=== PATIENT | female | born 1960 | race Caucasian/White ===

== ENCOUNTER 2017-12-01 18:46 | Inpatient (IN) | payer OTHER ==
[~2017-12-01] VITALS: Ht 157.5 cm; Wt 178.3 kg
[2017-12-01] MEDS ORDERED: ATOR10TA84 PO (19:03)
[2017-12-01] MEDS ORDERED: ASPI-1182 PO (19:03)
[2017-12-01] MEDS ORDERED: INSLAN SQ ×2 (19:03)
[2017-12-01] MEDS ORDERED: LOSA25TA21 PO (19:03)
[2017-12-01] MEDS ORDERED: METF500T4 PO (19:03)
[2017-12-01] MEDS ORDERED: FURO40 PO (19:03)
[2017-12-01] MEDS ORDERED: LEVO75 PO (19:03)
[2017-12-01] MEDS ORDERED: 0.9% SODIUM CHLORIDE 5 ML NEB SOLUTION NEB ONE (19:06)
[2017-12-01 19:07] LABS: GLUCOSE,POINT OF CARE 193 MG/DL (70-110)
[2017-12-01] MEDS ORDERED: ALBUTEROL SULFATE 5 MG/ML 20 ML NEB SOLN [BULK] NEB ONE (19:15)
[2017-12-01] MEDS ORDERED: IPRATROPIUM BROMIDE 0.5 MG/2.5 ML NEB SOLUTION NEB ONE (19:15)
[2017-12-01 20:30] LABS: BASOPHILS % (AUTO) 0.6 % (0.0-2.0); EOSINOPHILS % (AUTO) 1.1 % (1.0-6.0); HEMATOCRIT 38.6 % (36-46); HEMOGLOBIN 13.1 g/dL (12.0-16.0); LYMPHOCYTES # (AUTO) 1.4 K/uL (1.0-4.8); LYMPHOCYTES % (AUTO) 19.9 % (22.0-44.0); MEAN CORPUSCULAR HEMOGLOBIN 29.2 pg (26.0-34.0); MEAN CORPUSCULAR VOLUME 86 fL (80-100); MONOCYTES # (AUTO) 0.4 K/uL (0.1-1.0); MONOCYTES % (AUTO) 5.5 % (2.0-9.0); NEUTROPHILS % (AUTO) 72.9 % (40.0-70.0); PLATELET COUNT (AUTO) 248 K/uL (150-450); RED CELL DISTRIBUTION WIDTH 14.1 % (11.5-14.5)
[2017-12-01 20:41] LABS: ANION GAP 6 mmol/L (8-16); CALCIUM, TOTAL 9.5 mg/dL (8.8-10.5); CARBON DIOXIDE 33 mmol/L (22-29); CHLORIDE 99 mmol/L (98-107); CREATININE 0.88 mg/dL (0.60-1.30); GLOMERULAR FILTR. RATE CALC > 60 mL/min (>60); GLUCOSE,RANDOM 188 mg/dL (70-110); POTASSIUM 4.2 mmol/L (3.5-5.1); SODIUM SERUM 138 mmol/L (136-145); UREA NITROGEN, BLOOD 16 mg/dL (7-18)
[2017-12-01 20:47] LABS: ALANINE AMINOTRANSFERASE 25 U/L (12-78); ALBUMIN 3.1 g/dL (3.4-5.0); ALKALINE PHOSPHATASE 87 U/L (46-116); ASPARTATE AMINOTRANSFERASE 19 U/L (15-37); BILIRUBIN,TOTAL 0.5 mg/dL (0.1-1.0); TOTAL PROTEIN, SERUM 7.6 g/dL (6.4-8.2)
[2017-12-01 20:53] LABS: B-TYPE NATRIURETIC PEPTIDE 12 pg/mL (0-100)
[2017-12-01] MEDS ORDERED: ACETAMINOPHEN 500 MG TABLET PO ONE (21:00)
[2017-12-01] MEDS ORDERED: LEVOFLOXACIN 750 MG/D5% WATER 150 ML IV ONE (21:00)
[2017-12-01 21:28] LABS: BILIRUBIN,URINE NEGATIVE (NEGATIVE); GLUCOSE, URINE (UA) NEGATIVE (NEGATIVE); KETONES,URINE NEGATIVE (NEGATIVE); LEUKOCYTE ESTERASE ,URINE NEGATIVE (NEGATIVE); NITRATE,URINE NEGATIVE (NEGATIVE); OCCULT BLOOD,URINE NEGATIVE (NEGATIVE); PH,URINE 5.5 (5.0-8.0); PROTEIN,URINE NEGATIVE (NEGATIVE)
[2017-12-01] MEDS ORDERED: 0.9% SODIUM CHLORIDE 10 ML SYRINGE IVP PRN ×2 (21:30→23:45)
[2017-12-01] MEDS ORDERED: INSULIN LISPRO 100 UNITS/ML SQ PRN (21:30)
[2017-12-01] MEDS ORDERED: DEXTROSE 50%-WATER 25 GM/50 ML SYRINGE IVP PRN ×2 (21:30→23:45)
[2017-12-01] MEDS ORDERED: ACETAMINOPHEN 325 MG TABLET PO PRN (21:30)
[2017-12-01 21:37] LABS: INFLUENZA TYPE A NEGATIVE FOR TYPE A (NEGATIVE); INFLUENZA TYPE B NEGATIVE FOR TYPE B (NEGATIVE)
[2017-12-01 21:39] LABS: APPEARANCE,URINE CLEAR (CLEAR)
[2017-12-01 22:21] VITALS: BP 130/68
[2017-12-01] MEDS ORDERED: ALBUTEROL SULFATE 2.5 MG/0.5 ML NEB SOLUTION NEB SCH (23:00)
[2017-12-01] MEDS ORDERED: IPRATROPIUM BROMIDE 0.5 MG/2.5 ML NEB SOLUTION NEB SCH (23:00)
[2017-12-01] MEDS ORDERED: ONDANSETRON HCL 4 MG/2 ML VIAL IVP PRN (23:45)
[2017-12-01] MEDS ORDERED: BISACODYL 10 MG RECTAL RECTAL SUPPOSITORY PR PRN (23:45)
[2017-12-02] VITALS (8 sets, daily range): BP systolic 105–132; BP diastolic 55–77
[2017-12-02] MEDS ORDERED: SODIUM CHLORIDE 0.9% 250 ML IV ONE (00:33)
[2017-12-02] MEDS: CefTRIAXone SODIUM 1 GM in DEXTROSE 5%-WATER 10 ML IV SCH ×2 (00:46→23:29)
[2017-12-02] MEDS: AZITHROMYCIN 500 MG/NS 250 ML IV SCH (01:01)
[2017-12-02 02:27] LABS: ABG A-A DIFF O2 71.7 mmHg (10-20.0); ABG BASE EXCESS -0.9 mmol/L (-2.0-3.0); ABG CARBOXYHEMOGLOBIN 0.7 % (0.0-1.5); ABG HCO3 23.5 mmol/L (22.0-26.0); ABG METHEMOGLOBIN 0.2 % (0.0-1.5); ABG OXYGEN CONTENT 16.9 mL/dL (15.0-23.0); ABG OXYGEN SATURATION 94.5 % (95.0-98.0); ABG OXYHEMOGLOBIN 93.6 % (94.0-100.0); ABG PCO2 44 mmHg (35-45); ABG PH 7.362 (7.35-7.450); ABG TOTAL HEMOGLOBIN 12.8 G/dL (12.0-18.0); PO2, ARTERIAL BG 75.9 mmHg (84.0-92.0); SOURCE, BLOOD GAS ARTERIAL; TEMPERATURE, FAHRENHEIT, BG 98.6 FAHREN (96.0-98.6)
[2017-12-02 02:29] LABS: O2 DEVICE,BLOOD GAS CANNULA (ROOM AIR); SITE, BLOOD GAS RT RADIAL
[2017-12-02] MEDS ORDERED: PNEUMOCOCCAL VACCINE POLYVALENT 0.5 ML VIAL [PPSV23] IM ONE (06:30)
[2017-12-02] MEDS: LEVOTHYROXINE SODIUM 75 MCG TABLET PO SCH (06:43)
[2017-12-02] MEDS: INSULIN LISPRO 100 UNITS/ML SQ PRN ×4 (06:47→20:29)
[2017-12-02 06:51] LABS: BASOPHILS % (AUTO) 0.7 % (0.0-2.0); EOSINOPHILS % (AUTO) 0.6 % (1.0-6.0); HEMATOCRIT 36.9 % (36-46); HEMOGLOBIN 12.5 g/dL (12.0-16.0); LYMPHOCYTES # (AUTO) 0.8 K/uL (1.0-4.8); LYMPHOCYTES % (AUTO) 14.4 % (22.0-44.0); MEAN CORPUSCULAR HEMOGLOBIN 29.1 pg (26.0-34.0); MEAN CORPUSCULAR VOLUME 86 fL (80-100); MONOCYTES # (AUTO) 0.4 K/uL (0.1-1.0); MONOCYTES % (AUTO) 6.7 % (2.0-9.0); NEUTROPHILS # (AUTO) 4.2 K/uL (1.8-7.7); NEUTROPHILS % (AUTO) 77.6 % (40.0-70.0); PLATELET COUNT (AUTO) 234 K/uL (150-450); RED CELL DISTRIBUTION WIDTH 14.3 % (11.5-14.5)
[2017-12-02 07:15] LABS: ALANINE AMINOTRANSFERASE 22 U/L (12-78); ALBUMIN 2.9 g/dL (3.4-5.0); ALKALINE PHOSPHATASE 80 U/L (46-116); ANION GAP 7 mmol/L (8-16); ASPARTATE AMINOTRANSFERASE 20 U/L (15-37); BILIRUBIN,TOTAL 0.4 mg/dL (0.1-1.0); CARBON DIOXIDE 31 mmol/L (22-29); CHLORIDE 99 mmol/L (98-107); CHOL/HDL RATIO 3.5 (3.9-5.7); CHOLESTEROL 113 mg/dL (131-200); CREATININE 0.69 mg/dL (0.60-1.30); FREE T4 (FREE THYROXINE) 1.21 ng/dL (0.76-1.46); GLOMERULAR FILTR. RATE CALC > 60 mL/min (>60); GLUCOSE,RANDOM 192 mg/dL (70-110); HDL CHOLESTEROL 32 mg/dL (40-60); LDL CHOL (CALC.) 54 mg/dL (0-130); SODIUM SERUM 137 mmol/L (136-145); THYROID STIMULATING HORMONE 1.32 uIU/mL (0.36-3.74); TOTAL PROTEIN, SERUM 7.2 g/dL (6.4-8.2); TRIGLYCERIDES 137 mg/dL (15-150); UREA NITROGEN, BLOOD 15 mg/dL (7-18)
[2017-12-02] MEDS: ATORVASTATIN CALCIUM 10 MG TABLET PO SCH (08:07)
[2017-12-02] MEDS: PANTOPRAZOLE SODIUM 40 MG DR TABLET PO SCH (08:07)
[2017-12-02] MEDS: ACETAMINOPHEN 325 MG TABLET PO PRN ×2 (08:07→16:10)
[2017-12-02] MEDS: DOCUSATE SODIUM 100 MG CAPSULE PO SCH ×2 (08:07→20:25)
[2017-12-02] MEDS: ASPIRIN 81 MG EC TABLET PO SCH (08:07)
[2017-12-02] MEDS ORDERED: FUROSEMIDE 20 MG/2 ML VIAL IVP SCH (09:00)
[2017-12-02] MEDS ORDERED: HEPARIN SODIUM,PORCINE 5,000 UNITS/ML VIAL SQ SCH (09:00)
[2017-12-02] MEDS ORDERED: LOSARTAN POTASSIUM 25 MG TABLET PO SCH (09:00)
[2017-12-02 09:12] LABS: GLUCOMETER DEV NAME(LOC) 5N 1P; GLUCOSE,POINT OF CARE 175 MG/DL (70-110)
[2017-12-02] MEDS ORDERED: PERFLUTREN PROTEIN-A MICROSPHERES 0.22 MG/ML 3 ML VIAL IVP ONE (10:45)
[2017-12-02 12:17] LABS: GLUCOMETER DEV NAME(LOC) 5N 1P; GLUCOSE,POINT OF CARE 216 MG/DL (70-110)
[2017-12-02] MEDS: IPRATROPIUM BROMIDE 0.5 MG/2.5 ML NEB SOLUTION NEB PRN (15:58)
[2017-12-02] MEDS: ALBUTEROL SULFATE 2.5 MG/0.5 ML NEB SOLUTION NEB PRN (15:58)
[2017-12-02] MEDS: HEPARIN SODIUM,PORCINE 5,000 UNITS/ML VIAL SQ SCH ×2 (16:09→23:32)
[2017-12-03] MEDS: AZITHROMYCIN 500 MG/NS 250 ML IV SCH (00:27)
[2017-12-03 05:02] VITALS: BP 132/72
[2017-12-03] MEDS: LEVOTHYROXINE SODIUM 75 MCG TABLET PO SCH (05:57)
[2017-12-03] MEDS: INSULIN LISPRO 100 UNITS/ML SQ PRN ×4 (06:00→21:06)
[2017-12-03 07:21] VITALS: BP 106/63
[2017-12-03] MEDS: PANTOPRAZOLE SODIUM 40 MG DR TABLET PO SCH (08:33)
[2017-12-03] MEDS: ATORVASTATIN CALCIUM 10 MG TABLET PO SCH (08:33)
[2017-12-03] MEDS: DOCUSATE SODIUM 100 MG CAPSULE PO SCH ×2 (08:33→21:04)
[2017-12-03] MEDS: IPRATROPIUM BROMIDE 0.5 MG/2.5 ML NEB SOLUTION NEB PRN ×3 (10:31→20:49)
[2017-12-03] MEDS: ALBUTEROL SULFATE 2.5 MG/0.5 ML NEB SOLUTION NEB PRN ×3 (10:31→20:49)
[2017-12-03 11:23] VITALS: BP 129/76
[2017-12-03 12:29] LABS: ABG A-A DIFF O2 46.4 mmHg (10-20.0); ABG BASE EXCESS 0.3 mmol/L (-2.0-3.0); ABG CARBOXYHEMOGLOBIN 1.2 % (0.0-1.5); ABG METHEMOGLOBIN 0.3 % (0.0-1.5); ABG OXYGEN CONTENT 17.2 mL/dL (15.0-23.0); ABG OXYGEN SATURATION 92.1 % (95.0-98.0); ABG OXYHEMOGLOBIN 90.7 % (94.0-100.0); ABG PCO2 36 mmHg (35-45); ABG PH 7.453 (7.35-7.450); ABG TOTAL HEMOGLOBIN 13.5 G/dL (12.0-18.0); O2 DEVICE,BLOOD GAS ROOM AIR (ROOM AIR); PO2, ARTERIAL BG 60.8 mmHg (84.0-92.0); SITE, BLOOD GAS LFT RADIAL; SOURCE, BLOOD GAS ARTERIAL; TEMPERATURE, FAHRENHEIT, BG 98.6 FAHREN (96.0-98.6)
[2017-12-03] MEDS: HEPARIN SODIUM,PORCINE 5,000 UNITS/ML VIAL SQ SCH ×2 (12:40→17:43)
[2017-12-03] MEDS: ASPIRIN 81 MG EC TABLET PO SCH (12:40)
[2017-12-03 14:42] LABS: GLUCOMETER DEV NAME(LOC) 5N 1P; GLUCOSE,POINT OF CARE 231 MG/DL (70-110)
[2017-12-03 14:43] LABS: GLUCOMETER DEV NAME(LOC) 5N 1P; GLUCOSE,POINT OF CARE 190 MG/DL (70-110)
[2017-12-03 14:43] LABS: GLUCOMETER DEV NAME(LOC) 5N 1P; GLUCOSE,POINT OF CARE 260 MG/DL (70-110)
[2017-12-03 15:16] VITALS: BP 123/69
[2017-12-03 17:23] LABS: GLUCOMETER DEV NAME(LOC) 5S 2N; GLUCOSE,POINT OF CARE 188 MG/DL (70-110)
[2017-12-03 17:23] LABS: GLUCOMETER DEV NAME(LOC) 5S 2N; GLUCOSE,POINT OF CARE 196 MG/DL (70-110)
[2017-12-03 19:29] VITALS: BP 127/65
[2017-12-03] MEDS: MAGNESIUM HYDROXIDE SUSPENSION 30 ML UDCUP PO PRN (21:04)
[2017-12-04] VITALS (7 sets, daily range): BP systolic 105–134; BP diastolic 53–80
[2017-12-04 00:27] LABS: GLUCOMETER DEV NAME(LOC) 5N 2S; GLUCOSE,POINT OF CARE 307 MG/DL (70-110)
[2017-12-04] MEDS: CefTRIAXone SODIUM 1 GM in DEXTROSE 5%-WATER 10 ML IV SCH (00:33)
[2017-12-04] MEDS: HEPARIN SODIUM,PORCINE 5,000 UNITS/ML VIAL SQ SCH ×3 (00:33→15:38)
[2017-12-04] MEDS: ALBUTEROL SULFATE 2.5 MG/0.5 ML NEB SOLUTION NEB PRN (00:50)
[2017-12-04] MEDS: IPRATROPIUM BROMIDE 0.5 MG/2.5 ML NEB SOLUTION NEB PRN (00:50)
[2017-12-04] MEDS: AZITHROMYCIN 500 MG/NS 250 ML IV SCH (02:00)
[2017-12-04] MEDS: LEVOTHYROXINE SODIUM 75 MCG TABLET PO SCH (06:47)
[2017-12-04] MEDS: INSULIN LISPRO 100 UNITS/ML SQ PRN ×4 (06:47→21:02)
[2017-12-04] MEDS: PANTOPRAZOLE SODIUM 40 MG DR TABLET PO SCH (08:58)
[2017-12-04] MEDS: ATORVASTATIN CALCIUM 10 MG TABLET PO SCH (08:58)
[2017-12-04] MEDS: DOCUSATE SODIUM 100 MG CAPSULE PO SCH ×2 (08:58→20:10)
[2017-12-04] MEDS: ASPIRIN 81 MG EC TABLET PO SCH (08:58)
[2017-12-04 09:26] LABS: ORGANISM ID Not indicated.; S PNEUMO SOURCE Urine; STREP PNEUMONIAE AG URINE Negative (Negative); STREP.PNEUMO BODY FLUID CULT. Not Indicated
[2017-12-04 11:13] LABS: LEGIONELLA PNEUMO AG URINE Negative (Negative)
[2017-12-04 19:28] LABS: GLUCOMETER DEV NAME(LOC) 5S 2N; GLUCOSE,POINT OF CARE 186 MG/DL (70-110)
[2017-12-04 19:28] LABS: GLUCOMETER DEV NAME(LOC) 5S 2N; GLUCOSE,POINT OF CARE 258 MG/DL (70-110)
[2017-12-04 19:48] LABS: GLUCOMETER DEV NAME(LOC) 5N 2S; GLUCOSE,POINT OF CARE 249 MG/DL (70-110)
[2017-12-04 19:48] LABS: GLUCOMETER DEV NAME(LOC) 5N 2S; GLUCOSE,POINT OF CARE 228 MG/DL (70-110)
[2017-12-04] MEDS: MAGNESIUM HYDROXIDE SUSPENSION 30 ML UDCUP PO PRN (20:10)
[2017-12-04 21:02] LABS: GLUCOMETER DEV NAME(LOC) 5S 1M; GLUCOSE,POINT OF CARE 274 MG/DL (70-110)
[2017-12-04] MEDS: ACETAMINOPHEN 325 MG TABLET PO PRN (21:05)
[2017-12-05] MEDS: HEPARIN SODIUM,PORCINE 5,000 UNITS/ML VIAL SQ SCH ×2 (00:28→08:12)
[2017-12-05] MEDS: CefTRIAXone SODIUM 1 GM in DEXTROSE 5%-WATER 10 ML IV SCH (00:30)
[2017-12-05] MEDS: AZITHROMYCIN 500 MG/NS 250 ML IV SCH (01:12)
[2017-12-05 04:24] VITALS: BP 117/64
[2017-12-05] MEDS: LEVOTHYROXINE SODIUM 75 MCG TABLET PO SCH (05:31)
[2017-12-05] MEDS: ALBUTEROL SULFATE 2.5 MG/0.5 ML NEB SOLUTION NEB PRN ×2 (05:46→10:17)
[2017-12-05] MEDS: IPRATROPIUM BROMIDE 0.5 MG/2.5 ML NEB SOLUTION NEB PRN ×2 (05:46→10:17)
[2017-12-05] MEDS: INSULIN LISPRO 100 UNITS/ML SQ PRN ×2 (06:05→12:36)
[2017-12-05 07:23] VITALS: BP 124/72
[2017-12-05] MEDS: PANTOPRAZOLE SODIUM 40 MG DR TABLET PO SCH (08:12)
[2017-12-05] MEDS: ASPIRIN 81 MG EC TABLET PO SCH (08:12)
[2017-12-05] MEDS: ATORVASTATIN CALCIUM 10 MG TABLET PO SCH (08:12)
[2017-12-05] MEDS: DOCUSATE SODIUM 100 MG CAPSULE PO SCH (08:12)
[2017-12-05 11:21] VITALS: BP 102/57
[2017-12-05] MEDS ORDERED: DSS100 PO (12:50)
[2017-12-05] MEDS ORDERED: HEPA500018 SQ (12:51)
[2017-12-05] MEDS ORDERED: PANT40TA25 PO (12:51)
[2017-12-05] MEDS ORDERED: ACET-784 PO (12:55)
[2017-12-05] MEDS ORDERED: AUD NEB (12:56)
[2017-12-05] MEDS ORDERED: BISA10S PR (12:57)
[2017-12-05] MEDS ORDERED: IPRNEB IH (12:58)
[2017-12-05] MEDS ORDERED: MOM30 PO (12:59)
[2017-12-05 15:17] VITALS: BP 99/73
[2017-12-05 16:58] LABS: GLUCOMETER DEV NAME(LOC) 5S 1M; GLUCOSE,POINT OF CARE 195 MG/DL (70-110)
[2017-12-05] MEDS ORDERED: MetFORMIN HCL 500 MG TABLET PO SCH (18:00)
[2017-12-06 06:03] LABS: GLUCOMETER DEV NAME(LOC) 5S 2N; GLUCOSE,POINT OF CARE 275 MG/DL (70-110)
== END 2017-12-05 15:45 | DRG 133 ==
LOC: EMS 18:49 → 5S 21:30
PROVIDERS: ADMIT Internal Medicine; ATTEND Internal Medicine
DX: J96.21 Acute and chronic respiratory failure with hypoxia (principal); J18.9 Pneumonia, unspecified organism; I11.0 Hypertensive heart disease with heart failure; I50.9 Heart failure, unspecified; Z99.81 Dependence on supplemental oxygen; E66.2 Morbid (severe) obesity with alveolar hypoventilation; E03.9 Hypothyroidism, unspecified; E11.9 Type 2 diabetes mellitus without complications; J20.9 Acute bronchitis, unspecified; J45.909 Unspecified asthma, uncomplicated; Z68.45 Body mass index [BMI] 70 or greater, adult; Z91.19 Patient's noncompliance with other medical treatment and regimen; Z79.82 Long term (current) use of aspirin; Z79.4 Long term (current) use of insulin; Z79.899 Other long term (current) drug therapy
CPT/HCPCS: 82805; 82962; 83605; 83735; 84145; 84439; 84443; 87040; 87070; 87081; 87205; 87449; 87798; 87804; 87899; 93005; 93970; 94640; 94644; 96374; 97161; 99285; C8929; J0456; J0696; J1644; J1940; J1956; J7050; J7060

== ENCOUNTER 2018-04-19 12:05 | Emergency (ER) | payer OTHER ==
[~2018-04-19] VITALS: Ht 172.7 cm; Wt 178.6 kg
[~2018-04-19 12:05] MED LIST: ASPI-1182 PO; ATOR40TA28 PO; LEVO50 PO; METF500T6 PO
[2018-04-19] MEDS ORDERED: INSU500V SQ (12:56)
[2018-04-19] MEDS ORDERED: ONDANSETRON HCL 4 MG/2 ML VIAL IVP ONE (13:30)
[2018-04-19 13:35] LABS: BASOPHILS % (AUTO) 0.8 % (0.0-2.0); EOSINOPHILS % (AUTO) 2.7 % (1.0-6.0); HEMATOCRIT 34.8 % (36-46); HEMOGLOBIN 11.8 g/dL (12.0-16.0); LYMPHOCYTES # (AUTO) 1.7 K/uL (1.0-4.8); LYMPHOCYTES % (AUTO) 19.3 % (22.0-44.0); MEAN CORPUSCULAR HEMOGLOBIN 28.8 pg (26.0-34.0); MEAN CORPUSCULAR HGB CONC 33.9 G/dL (31.0-37.0); MEAN CORPUSCULAR VOLUME 85 fL (80-100); MONOCYTES # (AUTO) 0.4 K/uL (0.1-1.0); MONOCYTES % (AUTO) 4.5 % (2.0-9.0); NEUTROPHILS # (AUTO) 6.5 K/uL (1.8-7.7); NEUTROPHILS % (AUTO) 72.7 % (40.0-70.0); PLATELET COUNT (AUTO) 299 K/uL (150-450); RED BLOOD CELL COUNT(AUTO) 4.09 MIL/uL (4.00-5.20); RED CELL DISTRIBUTION WIDTH 14.2 % (11.5-14.5)
[2018-04-19] MEDS: MORPHINE SULFATE 2 MG/ML SYRINGE IVP ONE ×2 (13:39→13:42)
[2018-04-19 13:45] LABS: ANION GAP 5 mmol/L (8-16); CALCIUM, TOTAL 8.6 mg/dL (8.8-10.5); CARBON DIOXIDE 30 mmol/L (22-29); CHLORIDE 103 mmol/L (98-107); CREATININE 0.79 mg/dL (0.60-1.30); GLOMERULAR FILTR. RATE CALC > 60 mL/min (>60); GLUCOSE,RANDOM 148 mg/dL (70-110); POTASSIUM 3.8 mmol/L (3.5-5.1); SODIUM SERUM 138 mmol/L (136-145); UREA NITROGEN, BLOOD 12 mg/dL (7-18)
[2018-04-19] MEDS ORDERED: ACETAMINOPHEN 325 MG TABLET PO ONE (13:45)
[2018-04-19 13:51] LABS: ALANINE AMINOTRANSFERASE 20 U/L (12-78); ALBUMIN 2.8 g/dL (3.4-5.0); ALKALINE PHOSPHATASE 81 U/L (46-116); ASPARTATE AMINOTRANSFERASE 16 U/L (15-37); BILIRUBIN,TOTAL 0.3 mg/dL (0.1-1.0); LIPASE 131 U/L (73-393); TOTAL PROTEIN, SERUM 7.1 g/dL (6.4-8.2)
[2018-04-19 14:28] LABS: GLUCOSE,POINT OF CARE 161 MG/DL (70-110)
[2018-04-19 15:18] LABS: APPEARANCE,URINE CLEAR (CLEAR); BILIRUBIN,URINE NEGATIVE (NEGATIVE); GLUCOSE, URINE (UA) NEGATIVE (NEGATIVE); KETONES,URINE NEGATIVE (NEGATIVE); LEUKOCYTE ESTERASE ,URINE NEGATIVE (NEGATIVE); NITRATE,URINE NEGATIVE (NEGATIVE); OCCULT BLOOD,URINE NEGATIVE (NEGATIVE); PH,URINE 7.5 (5.0-8.0); PROTEIN,URINE NEGATIVE (NEGATIVE)
[2018-04-19 16:05] LABS: THYROID STIMULATING HORMONE 2.78 uIU/mL (0.36-3.74)
[2018-04-19 17:01] VITALS: BP 103/58
== END 2018-04-19 17:36 | disposition home or self-care (01) ==
LOC: EMS 12:15
DX: T67.5XXA Heat exhaustion, unspecified, initial encounter (principal); F41.9 Anxiety disorder, unspecified; R11.2 Nausea with vomiting, unspecified; M79.89 Other specified soft tissue disorders; E66.01 Morbid (severe) obesity due to excess calories; J45.909 Unspecified asthma, uncomplicated; E11.9 Type 2 diabetes mellitus without complications; I10 Essential (primary) hypertension; E03.9 Hypothyroidism, unspecified; Z79.4 Long term (current) use of insulin; Z79.82 Long term (current) use of aspirin; Z79.84 Long term (current) use of oral hypoglycemic drugs; Z88.5 Allergy status to narcotic agent; Z68.43 Body mass index [BMI] 50.0-59.9, adult; Y92.89 Other specified places as the place of occurrence of the external cause
CPT/HCPCS: 36415; 51701; 71046; 80053; 81003; 82962; 83690; 83880; 84443; 84484; 85025; 93005; 99285; J2270; J2405